=== PATIENT | female | born 1950 | race Hispanic/Latino ===

== ENCOUNTER 2018-12-31 06:56 | Inpatient (IN) | payer MEDICARE, OTHER ==
[2018-12-30 11:56] LABS: BASOPHILS # (AUTO) 0.1 (0.0-0.1); BASOPHILS % 0.7 % (0.0-1.0); EOSINOPHILS # (AUTO) 0.2 (0.0-0.4); EOSINOPHILS % 2.8 % (0.0-6.0); HEMATOCRIT 36.7 % (34.2-44.1); HEMOGLOBIN 11.8 g/dL (12.0-16.0); LYMPHOCYTES # (AUTO) 2.1 (1.0-3.2); LYMPHOCYTES % 27.9 % (18.0-39.1); MEAN CORPUSCULAR HEMOGLOBIN 29.3 pg (28-32); MEAN CORPUSCULAR HGB CONC 32.2 g/dL (31-35); MEAN CORPUSCULAR VOLUME 91.1 fL (81-99); MONOCYTES # (AUTO) 0.9 (0.2-0.8); MONOCYTES % 11.7 % (4.4-11.3); NEUTROPHILS # (AUTO) 4.2 (2.1-6.9); NEUTROPHILS % 56.6 % (38.7-80.0); PLATELET COUNT 303 x10e3/uL (140-360); RED BLOOD COUNT 4.03 x10e6/uL (3.6-5.1); RED CELL DISTRIBUTION WIDTH 13.6 % (11.7-14.4)
--- NOTE | 2018-12-30 12:16 | Diagnostic Imaging Report ---
EXAMINATION: CHEST 2 VIEWS INDICATION: Preoperative COMPARISON: None FINDINGS: TUBES and LINES: None. LUNGS: The lung volumes are normal. No focal consolidation or pulmonary edema. PLEURA: No pleural effusion or pneumothorax. HEART AND MEDIASTINUM: The cardiomediastinal silhouette is normal in size and contour. BONES AND SOFT TISSUES: No acute fracture or dislocation. Degenerative changes of the visualized spine. UPPER ABDOMEN: No free air under the diaphragm. IMPRESSION: No focal pneumonia or pulmonary edema. Signed by: Evelio Bocanegra MD on 12/30/2018 12:13 PM
[2018-12-30 12:26] LABS: ANION GAP 9.8 mmol/L (8-16); BLOOD UREA NITROGEN 12 mg/dL (7-26); BUN/CREATININE RATIO 15 (6-25); CALCIUM 9.7 mg/dL (8.4-10.2); CARBON DIOXIDE 31 mmol/L (22-29); CHLORIDE 97 mmol/L (98-107); CREATININE, SERUM 0.78 mg/dL (0.57-1.11); EST GLOMERULAR FILTRATION RATE > 60 ML/MIN (60-); GLUCOSE 87 mg/dL (74-118); POTASSIUM 3.8 mmol/L (3.5-5.1); SODIUM 134 mmol/L (136-145)
[~2018-12-31] VITALS: Ht 147.3 cm; Wt 69.9 kg
[~2018-12-31 06:56] MED LIST: LOSARTAN-HCTZ1 EAC2 PO; OXYBUTYNIN CHLOR5 MG PO
--- OUTSIDE RECORDS SUMMARY | 2018-12-31 07:07 | XMS REPORT | Continuity of Care Document ---
Author Author [facility] Organization [facility] Address Unknown Phone Unavailable Care Team Providers Care Staff Pharmacist Hospital Name Role Phone [employer] Unavailable Unavailable Problems Problem Status Onset Date Classification Date Reported Comments Source Hyperlipidemia, unspecified hyperlipidemia type Active Problem 11/06/2018 [facility] Hypertension, unspecified type Active Problem 11/06/2018 [facility] DDD , lumbar Active Problem 11/06/2018 [facility] Overactive bladder Active Problem 11/06/2018 [facility] Sinus headache Active Diagnosis 09/16/2018 [facility] Nonintractable headache, unspecified chronicity pattern, unspecified headache type Active Diagnosis 10/25/2018 [facility] Lumbar radiculopathy Active Diagnosis 04/23/2018 [facility] Medications Medication Details Route Status Patient Instructions Ordering Provider Order Date Source Oxybutynin Chloride ER 1 tablet Orally Active 10 mg Orally as needed (prn) [facility] 11/28/2018 [facility] Levaquin 1 tablet Orally Active 500 mg Orally Once a day [facility] 09/08/2018 [facility] Hydrochlorothiazide 1 tablet in the morning, and 0.5 tablet as needed Orally Active 12.5 MG Orally Once a day prn [facility] 07/22/2018 [facility] Losartan Potassium 1 tablet in the am and 2 tablets in the pm Orally Active 50 mg Orally as directed [facility] 07/22/2018 [facility] Hydrochlorothiazide 1 tablet in the morning, and 0.5 tablet as needed Orally Active 12.5 MG Orally Once a day prn [facility] 07/22/2018 [facility] Oxybutynin Chloride 1 tablet Orally Active 5 MG Orally Twice a day [facility] 06/23/2018 [facility] Losartan Potassium-HCTZ 1 tablet Orally Active 100-12.5 MG Orally Once a day [facility] 02/26/2018 [facility] Medrol (Andrei) as directed Orally Active 4 mg Orally as directed [facility]win [facility] 02/26/2018 [facility] Gabapentin 3 capsule in am 3caps in PM Orally Active 100 mg Orally daily [facility] IBU 1 tablet with food or milk as needed Orally Active 600 MG Orally Three times a day [facility] Glucosamine Chond MSM Formula not defined Orally Active - Orally [facility] Aspir-81 1 tablet Orally Active 81 MG Orally Once a day [facility] Calcium & Magnesium Carbonates not defined Orally Active 311- 232 MG Orally [facility] Oxybutynin Chloride 1 tablet Orally Active 5 MG Orally Twice a day [facility] Valsartan-Hydrochlorothiazide 1 tablet Orally Active 160-12.5 MG Orally Once a day [facility] Gabapentin 3 capsule in am 3caps in PM Orally Active 100 mg Orally daily [facility] Allergies, Adverse Reactions, Alerts Substance Category Reaction Severity Reaction type Status Date Reported Comments Source N.K.D.A. Adverse Reaction Info Not Available Adverse Reaction Active 10/22/2018 [facility] Immunizations No Data Provided for This Section Results No Data Provided for This Section Pathology Reports No Data Provided for This Section Diagnostic Reports No Data Provided for This Section Consultation Notes No Data Provided for This Section Discharge Summaries No Data Provided for This Section History and Physicals No Data Provided for This Section Vital Signs Vital Sign Value Date Comments Source Weight 157 10/22/2018 [facility] Height 58.25 10/22/2018 [facility] Heart Rate 72 10/22/2018 [facility] Diastolic (mm Hg) 60 10/22/2018 [facility] Systolic (mm Hg) 112 10/22/2018 [facility] Weight 157 09/08/2018 [facility] Height 58.25 09/08/2018 [facility] Heart Rate 79 09/08/2018 [facility] Diastolic (mm Hg) 68 09/08/2018 [facility] Systolic (mm Hg) 120 09/08/2018 [facility] Weight 158 07/22/2018 [facility] Height 58.25 07/22/2018 [facility] Heart Rate 73 07/22/2018 [facility] Diastolic (mm Hg) 64 07/22/2018 [facility] Systolic (mm Hg) 110 07/22/2018 [facility] Weight 159 04/15/2018 [facility] Height 58.25 04/15/2018 [facility] Temperature Oral (F) 98.1 F 04/15/2018 [facility] Heart Rate 88 04/15/2018 [facility] Diastolic (mm Hg) 76 04/15/2018 [facility] Systolic (mm Hg) 132 04/15/2018 [facility] Weight 157 03/12/2018 [facility] Height 58.25 03/12/2018 [facility] Heart Rate 74 03/12/2018 [facility] Diastolic (mm Hg) 64 03/12/2018 [facility] Systolic (mm Hg) 112 03/12/2018 [facility] Weight 161.0 02/26/2018 [facility] Height 58.25 02/26/2018 [facility] Heart Rate 64 02/26/2018 [facility] Diastolic (mm Hg) 74 02/26/2018 [facility] Systolic (mm Hg) 126 02/26/2018 [facility] Encounters No Data Provided for This Section Procedures No Data Provided for This Section Assessment and Plan No Data Provided for This Section Plan of Care No Data Provided for This Section Social History No Data Provided for This Section Family History No Data Provided for This Section Advance Directives No Data Provided for This Section Functional Status No Data Provided for This Section
--- OUTSIDE RECORDS SUMMARY | 2018-12-31 07:08 | XMS REPORT ---
Author Author Demetria Zaragoza Organization [employer] Address Unknown Phone Unavailable Care Team Providers Care Dray Truck Driver Name Role Phone Demetria Zaragoza CP Unavailable Allergies No Known Allergies Problems Problem Type Condition Code Onset Dates Condition Status Problem Hyperlipidemia, unspecified hyperlipidemia type E78.5 Active Problem Hypertension, unspecified type I10 Active Problem DDD (degenerative disc disease), lumbar M51.36 Active Assessment Sinus headache R51 Active Problem Overactive bladder N32.81 Active Medications Medication Code System Code Instructions Start Date End Date Status Dosage Levaquin [facility] 27718156173 500 mg Orally Once a day September 08, 2018 September 28, 2018 Active 1 tablet Hydrochlorothiazide [facility] [address]-27 12.5 MG Orally Once a day prn Jul 22, 2018 Active 1 tablet in the morning, and 0.5 tablet as needed Gabapentin ND 35605460657 100 mg Orally daily Active 3 capsule in am 3caps in PM Losartan Potassium ND 42405221872 50 mg Orally as directed Jul 22, 2018 Active 1 tablet in the am and 2 tablets in the pm Glucosamine Chond MSM Formula ND 15686644845 - Orally Active not defined Calcium & Magnesium Carbonates NDC 0 311-232 MG Orally Active not defined Aspir-81 ND 38622947184 81 MG Orally Once a day Active 1 tablet IBU ND 63536987661 600 MG Orally Three times a day Active 1 tablet with food or milk as needed Results No Known Results Summary Purpose [employer] Submission
--- OUTSIDE RECORDS SUMMARY | 2018-12-31 07:08 | XMS REPORT ---
Author Author Demetria Zaragoza Organization [employer] Address Unknown Phone Unavailable Care Team Providers Care Meter Reader Name Role Phone Demetria Zaragoza CP Unavailable Allergies, Adverse Reactions, Alerts Substance Reaction Event Type N.K.D.A. Info Not Available Non Drug Allergy Problems Problem Type Condition Code Onset Dates Condition Status Problem Hyperlipidemia, unspecified hyperlipidemia type E78.5 Active Problem Hypertension, unspecified type I10 Active Problem DDD (degenerative disc disease), lumbar M51.36 Active Assessment Sinus headache R51 Active Assessment Hypertension, unspecified type I10 Active Problem Overactive bladder N32.81 Active Medications Medication Code System Code Instructions Start Date End Date Status Dosage Gabapentin [facility] 19943529923 100 mg Orally daily Active 3 capsule in am 3caps in PM IBU [facility] 07573596578 600 MG Orally Three times a day Active 1 tablet with food or milk as needed Glucosamine Chond MSM Formula ND 12415040423 - Orally Active not defined Levaquin ND 99381740355 500 mg Orally Once a day September 08, 2018 September 28, 2018 Active 1 tablet Hydrochlorothiazide [facility] [address]-02 12.5 MG Orally Once a day prn Jul 22, 2018 Active 1 tablet in the morning, and 0.5 tablet as needed Losartan Potassium ND 14925641029 50 mg Orally as directed Jul 22, 2018 Active 1 tablet in the am and 2 tablets in the pm Aspir-81 [facility] 12000039699 81 MG Orally Once a day Active 1 tablet Calcium & Magnesium Carbonates ND 0 311-232 MG Orally Active not defined Vital Signs Date/Time: September 08, 2018 BMI 32.53 Index Weight 157 lbs Height 58.25 in Cardiac Monitoring Heart Rate 79 /min Blood Pressure Diastolic 68 mm Hg Blood Pressure Systolic 120 mm Hg Results No Known Results Summary Purpose [employer] Submission
--- OUTSIDE RECORDS SUMMARY | 2018-12-31 07:08 | XMS REPORT ---
Author Author Demetria Zaragoza Organization [employer] Address Unknown Phone Unavailable Care Team Providers Care Pediatric Dentist Name Role Phone Demetria Zaragoza CP Unavailable Allergies No Known Allergies Problems Problem Type Condition Code Onset Dates Condition Status Problem Hyperlipidemia, unspecified hyperlipidemia type E78.5 Active Problem Hypertension, unspecified type I10 Active Problem DDD (degenerative disc disease), lumbar M51.36 Active Problem Overactive bladder N32.81 Active Medications No Known Medications Results No Known Results Summary Purpose [employer] Submission
--- OUTSIDE RECORDS SUMMARY | 2018-12-31 07:08 | XMS REPORT ---
Author Author Demetria Zaragoza Organization [employer] Address Unknown Phone Unavailable Care Team Providers Care French Teacher Name Role Phone Demetria Zaragoza CP Unavailable Allergies, Adverse Reactions, Alerts Substance Reaction Event Type N.K.D.A. Info Not Available Non Drug Allergy Problems Problem Type Condition Code Onset Dates Condition Status Problem Hypertension, unspecified type I10 Active Assessment Lumbar radiculopathy M54.16 Active Problem Overactive bladder N32.81 Active Assessment Hypertension, unspecified type I10 Active Medications Medication Code System Code Instructions Start Date End Date Status Dosage Aspir-81 ND 99507920389 81 MG Orally Once a day Active 1 tablet Losartan Potassium-HCTZ ND 51827330820 100-12.5 MG Orally Once a day Feb 26, 2018 Active 1 tablet Calcium & Magnesium Carbonates NDC 0 311-232 MG Orally Active not defined Oxybutynin Chloride ER ND 66842982855 10 mg Orally Once a day November 28, 2018 Active 1 tablet Glucosamine Chond MSM Formula ND 14143661452 - Orally Active not defined Medrol (Andrei) NDC 0 4 mg Orally as directed Feb 26, 2018 Mar 04, 2018 Active as directed Valsartan-Hydrochlorothiazide ND 44692051839 160-12.5 MG Orally Once a day Inactive 1 tablet Vital Signs Date/Time: Feb 26, 2018 BMI 33.36 Index Weight 161.0 lbs Height 58.25 in Cardiac Monitoring Heart Rate 64 /min Blood Pressure Diastolic 74 mm Hg Blood Pressure Systolic 126 mm Hg Results No Known Results Summary Purpose [employer] Submission
--- OUTSIDE RECORDS SUMMARY | 2018-12-31 07:08 | XMS REPORT ---
Author Author Demetria Zaragoza Organization [employer] Address Unknown Phone Unavailable Care Team Providers Care Ct Scan Technician Name Role Phone Demetria Zaragoza CP Unavailable [...]
--- OUTSIDE RECORDS SUMMARY | 2018-12-31 07:08 | XMS REPORT ---
Author Author Demetria Zaragoza Organization [employer] Address Unknown Phone Unavailable Care Team Providers Care Director Of Cardiology Name Role Phone Demetria Zaragoza CP Unavailable Allergies, Adverse Reactions, Alerts Substance Reaction Event Type N.K.D.A. Info Not Available Non Drug Allergy Problems Problem Type Condition Code Onset Dates Condition Status Problem Hyperlipidemia, unspecified hyperlipidemia type E78.5 Active Problem Hypertension, unspecified type I10 Active Problem DDD (degenerative disc disease), lumbar M51.36 Active Assessment DDD (degenerative disc disease), lumbar M51.36 Active Assessment Lumbar radiculopathy M54.16 Active Problem Overactive bladder N32.81 Active Medications Medication Code System Code Instructions Start Date End Date Status Dosage Glucosamine Chond MSM Formula [facility] 36342286894 - Orally Active not defined Oxybutynin Chloride ER [facility] 80217056221 10 mg Orally as needed (prn) November 28, 2018 Active 1 tablet Calcium & Magnesium Carbonates ND 0 311-232 MG Orally Active not defined Losartan Potassium-HCTZ [facility] 10726454956 100-12.5 MG Orally Once a day Feb 26, 2018 Active 1 tablet Aspir-81 [facility] 83949755811 81 MG Orally Once a day Active 1 tablet Vital Signs Date/Time: Apr 15, 2018 BMI 32.94 Index Weight 159 lbs Height 58.25 in Temperature 98.1 F Cardiac Monitoring Heart Rate 88 /min Blood Pressure Diastolic 76 mm Hg Blood Pressure Systolic 132 mm Hg Results No Known Results Summary Purpose [employer] Submission
--- OUTSIDE RECORDS SUMMARY | 2018-12-31 07:08 | XMS REPORT ---
Author Author Demetria Zaragoza Organization [employer] Address Unknown Phone Unavailable Care Team Providers Care School Secretary Name Role Phone Demetria Zaragoza CP Unavailable [...]
--- OUTSIDE RECORDS SUMMARY | 2018-12-31 07:08 | XMS REPORT ---
Author Author Demetria Zaragoza [facility] [employer] Address Unknown Phone Unavailable Care Team Providers Care Military Communications Specialist Name Role Phone Kerwin Eric Demetria CP Unavailable Allergies, Adverse Reactions, Alerts Substance Reaction Event Type N.K.D.A. Info Not Available Non Drug Allergy Problems Problem Type Condition Code Onset Dates Condition Status Problem Hyperlipidemia, unspecified hyperlipidemia type E78.5 Active Problem Hypertension, unspecified type I10 Active Problem DDD (degenerative disc disease), lumbar M51.36 Active Assessment Nonintractable headache, unspecified chronicity pattern, unspecified headache type R51 Active Problem Overactive bladder N32.81 Active Medications Medication Code System Code Instructions Start Date End Date Status Dosage Glucosamine Chond MSM Formula [facility] 01450157879 - Orally Active not defined Gabapentin [facility] 02066405280 100 mg Orally daily Active 3 capsule in am 3caps in PM Losartan Potassium ND 00248676151 50 mg Orally as directed Jul 22, 2018 Active 1 tablet in the am and 2 tablets in the pm Oxybutynin Chloride ND 15709027072 5 MG Orally Twice a day Active 1 tablet Aspir-81 [facility] 34789504673 81 MG Orally Once a day Active 1 tablet Calcium & Magnesium Carbonates ND 0 311-232 MG Orally Active not defined IBU [facility] 15363792946 600 MG Orally Three times a day Active 1 tablet with food or milk as needed Hydrochlorothiazide ND 17281849710 12.5 MG Orally Once a day prn Jul 22, 2018 Active 1 tablet in the morning, and 0.5 tablet as needed Vital Signs Date/Time: October 22, 2018 BMI 32.53 Index Weight 157 lbs Height 58.25 in Cardiac Monitoring Heart Rate 72 /min Blood Pressure Diastolic 60 mm Hg Blood Pressure Systolic 112 mm Hg Results Name Result Date Reference Range Unit Abnormality Flag Sedimentation Rate-Westergren ----Sedimentation Rate-Westergren 8 20181023 0-40 mm/hr Hemoglobin A1c ----Hemoglobin A1c 5.6 20181023 4.8-5.6 % Comp. Metabolic Panel (14) ----A/G Ratio 1.7 20181023 1.2-2.2 ----Globulin, Total 2.4 20181023 1.5-4.5 g/dL ----Alkaline Phosphatase 68 20181023 39-117 IU/L ----Bilirubin, Total 0.4 20181023 0.0-1.2 mg/dL ----Chloride 102 20181023 96-106 mmol/L ----ALT (SGPT) 12 20181023 0-32 IU/L ----Potassium 4.2 20181023 3.5-5.2 mmol/L ----AST (SGOT) 19 20181023 0-40 IU/L ----Sodium 141 20181023 134-144 mmol/L ----BUN/Creatinine Ratio 24 20181023 ----eGFR If Africn Am 100 20181023 >59 mL/min/1.73 ----Calcium 9.6 20181023 8.7-10.3 mg/dL ----Carbon Dioxide, Total 26 20181023 20-29 mmol/L ----Albumin 4.1 20181023 3.5-4.8 g/dL ----Protein, Total 6.5 20181023 6.0-8.5 g/dL ----Glucose 96 20181023 65-99 mg/dL ----BUN 17 20181023 8-27 mg/dL ----Creatinine 0.71 20181023 0.57-1.00 mg/dL ----eGFR If NonAfricn Am 87 20181023 >59 mL/min/1.73 TSH ----TSH 2.040 20181023 0.450-4.500 uIU/mL CBC With Differential/Platelet ----RDW 14.5 20181023 12.3-15.4 % ----MCHC 33.4 20181023 31.5-35.7 g/dL ----MCH 29.2 20181023 26.6-33.0 pg ----MCV 88 20181023 79-97 fL ----Hematocrit 35.6 43130138 34.0-46.6 % ----Hemoglobin 11.9 20181023 11.1-15.9 g/dL ----Immature Granulocytes 0 20181023 Not Estab. % ----RBC 4.07 20181023 3.77-5.28 x10E6/uL ----WBC 6.4 20181023 3.4-10.8 x10E3/uL ----Immature Grans (Abs) 0.0 20181023 0.0-0.1 x10E3/uL ----Eos (Absolute) 0.2 20181023 0.0-0.4 x10E3/uL ----Basos 1 20181023 Not Estab. % ----Baso (Absolute) 0.0 20181023 0.0-0.2 x10E3/uL ----Neutrophils (Absolute) 3.9 20181023 1.4-7.0 x10E3/uL ----Lymphs (Absolute) 1.8 20181023 0.7-3.1 x10E3/uL ----Monocytes(Absolute) 0.4 20181023 0.1-0.9 x10E3/uL ----Neutrophils 60 20181023 Not Estab. % ----Lymphs 29 20181023 Not Estab. % ----Monocytes 7 [id number] Not Estab. % ----Eos 3 20181023 Not Estab. % ----Platelets 330 20181023 150-379 x10E3/uL Summary Purpose [employer]ClinicalWorks Submission
--- OUTSIDE RECORDS SUMMARY | 2018-12-31 07:08 | XMS REPORT ---
Author Author Demetria Zaragoza Organization [employer] Address Unknown Phone Unavailable Care Team Providers Care Emergency Specialist Name Role Phone Demetria Zaragoza CP Unavailable Allergies, Adverse Reactions, Alerts Substance Reaction Event Type N.K.D.A. Info Not Available Non Drug Allergy Problems Problem Type Condition Code Onset Dates Condition Status Problem Hypertension, unspecified type I10 Active Problem Overactive bladder N32.81 Active Problem Hyperlipidemia, unspecified hyperlipidemia type E78.5 Active Assessment Lumbar radiculopathy M54.16 Active Assessment Overactive bladder N32.81 Active Assessment Hypertension, unspecified type I10 Active Assessment Hyperlipidemia, unspecified hyperlipidemia type E78.5 Active Medications Medication Code System Code Instructions Start Date End Date Status Dosage Losartan Potassium-HCTZ [facility] 88166332175 100-12.5 MG Orally Once a day Feb 26, 2018 Active 1 tablet Oxybutynin Chloride ER ND 59165653142 10 mg Orally as needed (prn) November 28, 2018 Active 1 tablet Calcium & Magnesium Carbonates ND 0 311-232 MG Orally Active not defined Aspir-81 [facility] 37013800393 81 MG Orally Once a day Active 1 tablet Glucosamine Chond MSM Formula ND 68856728673 - Orally Active not defined Vital Signs Date/Time: Mar 12, 2018 BMI 32.53 Index Weight 157 lbs Height 58.25 in Cardiac Monitoring Heart Rate 74 /min Blood Pressure Diastolic 64 mm Hg Blood Pressure Systolic 112 mm Hg Results No Known Results Summary Purpose [employer]Works Submission
--- OUTSIDE RECORDS SUMMARY | 2018-12-31 07:09 | XMS REPORT ---
Author Author [facility] Address Unknown Phone Unavailable Care Team Providers Care [facility] [employer] [facility] Former Name Role Phone GLADYS PETERS Unavailable Unavailable Problems This patient has no known problems. Allergies, Adverse Reactions, Alerts This patient has no known allergies or adverse reactions. Medications This patient has no known medications. Encounters Start Date/Time End Date/Time Encounter Type Admission Type Attending Clinicians Care Facility Care Department Encounter ID 2018-10-28 14:32:33 [place] [facility] [place] [id number] Results Test Description Test Time Test Comments Text Results Atomic Results Result Comments CHEST 2 VIEWS 2018-12-30 12:12:00 [place] [id number] Patient Name: SUZY TORRE MR #: [id number] : 1950 Age/Sex: 68/F Req #: [id number] Adm Physician: Ordered by: GLADYS PETERS MD Report #: [id number] Location: OR Room/Bed: Procedure: [id number] DX/CHEST 2 VIEWS Exam Date: Exam Time: REPORT STATUS: Signed EXAMINATION: CHEST 2 VIEWS INDICATION: Preoperative COMPARISON: None FINDINGS: TUBES and LINES: None. LUNGS: The lung volumes are normal. No focal consolidation or pulmonary edema. PLEURA: No pleural effusion or pneumothorax. HEART AND MEDIASTINUM: The cardiomediastinal silhouette is normal in size and contour. BONES AND SOFT TISSUES: No acute fracture or dislocation. Degenerative changes of the visualized spine. UPPER ABDOMEN: No free air under the diaphragm. IMPRESSION: No focal pneumonia or pulmonary edema. Signed by: Rajendra Bocanegra MD on 12/30/2018 12:13 PM Dictated By: RAJENRDA BOCANEGRA MD 1213 Transcribed By: JANET on 12/30/18 1213 COPY TO: GLADYS PETERS MD
--- OUTSIDE RECORDS SUMMARY | 2018-12-31 07:09 | XMS REPORT ---
Author Author Demetria Zaragoza [facility] eClinicalWorks Address Unknown Phone Unavailable Care Team Providers Care Instrument Lens Generator Name Role Phone Demetria Zaragoza CP Unavailable Allergies, Adverse Reactions, Alerts Substance Reaction Event Type N.K.D.A. Info Not Available Non Drug Allergy Problems Problem Type Condition Code Onset Dates Condition Status Problem Hyperlipidemia, unspecified hyperlipidemia type E78.5 Active Problem Hypertension, unspecified type I10 Active Problem DDD (degenerative disc disease), lumbar M51.36 Active Assessment Hypertension, unspecified type I10 Active Problem Overactive bladder N32.81 Active Medications Medication Code System Code Instructions Start Date End Date Status Dosage Oxybutynin Chloride [facility] 99199777685 5 MG Orally Twice a day Jun 23, 2018 Jul 23, 2018 Active 1 tablet Gabapentin [facility] [address]-21 100 mg Orally daily Active 3 capsule in am 3caps in PM Oxybutynin Chloride ER ND 70327577501 10 mg Orally as needed (prn) November 28, 2018 Active 1 tablet Losartan Potassium-HCTZ [facility] 19606175635 100-12.5 MG Orally Once a day Feb 26, 2018 Inactive 1 tablet Glucosamine Chond MSM Formula [facility] 43160959759 - Orally Active not defined Aspir-81 [facility] 13316743336 81 MG Orally Once a day Active 1 tablet Hydrochlorothiazide ND 85752320232 12.5 MG Orally Once a day prn Jul 22, 2018 Active 1 tablet in the morning Gabapentin [facility] [address]-56 100 mg Orally Three times a day Active 1 capsule Losartan Potassium ND 32301010046 50 mg Orally as directed Jul 22, 2018 Active 1 tablet in the am and 2 tablets in the pm Calcium & Magnesium Carbonates ND 0 311-232 MG Orally Active not defined IBU [facility] 66915593327 600 MG Orally Three times a day Active 1 tablet with food or milk as needed Vital Signs Date/Time: Jul 22, 2018 BMI 32.74 Index Weight 158 lbs Height 58.25 in Cardiac Monitoring Heart Rate 73 /min Blood Pressure Diastolic 64 mm Hg Blood Pressure Systolic 110 mm Hg Results No Known Results Summary Purpose eClinicalWorks Submission
--- OUTSIDE RECORDS SUMMARY | 2018-12-31 07:09 | XMS REPORT ---
Author Author Demetria Zaragoza Organization eClinicalWorks Address Unknown Phone Unavailable Care Team Providers Care Nursing Agency Manager Name Role Phone Demetria Zaragoza CP Unavailable Allergies No Known Allergies Problems Problem Type Condition Code Onset Dates Condition Status Problem Hyperlipidemia, unspecified hyperlipidemia type E78.5 Active Problem Hypertension, unspecified type I10 Active Problem DDD (degenerative disc disease), lumbar M51.36 Active Problem Overactive bladder N32.81 Active Medications Medication Code System Code Instructions Start Date End Date Status Dosage Oxybutynin Chloride [facility] 02592005653 5 MG Orally Twice a day Jun 23, 2018 Jul 23, 2018 Active 1 tablet Results No Known Results Summary Purpose eClinicalWorks Submission
[2018-12-31] MEDS ORDERED: CLINDAMYCIN 600MG / 50ML 50 ML IV ONE (07:15)
[2018-12-31] MEDS ORDERED: CEFTRIAXONE SOD 1 GM/NS 50 ML 50 ML IV ONE (07:15)
[2018-12-31] MEDS ORDERED: GENTAMICIN 80MG/NS 100 ML 200 ML IV ONE (07:16)
[2018-12-31] MEDS ORDERED: METHYLENE BLUE 1% INJ 10 ML VIAL INJ ONE (10:10)
[2018-12-31] MEDS ORDERED: BUPIVACAINE 0.25%/EPI 30ML SDV INJ ONE (10:11)
[2018-12-31] MEDS ORDERED: IOPAMIDOL 610MG/1ML 300 MG/ML VIAL IV ONE (10:11)
[2018-12-31] MEDS ORDERED: BACITRACIN 50,000 UNIT VIAL ONE (10:11)
[2018-12-31] MEDS ORDERED: MUPIROCIN 2% OINT 22 GM TUBE ONE (10:11)
[2018-12-31] MEDS ORDERED: DIPHENHYDRAMINE HCL INJ 50 MG/ML VIAL IM PRN (12:15)
[2018-12-31] MEDS ORDERED: NALOXONE HCL INJ 0.4 MG/ML AMP IV PRN (12:15)
[2018-12-31] MEDS ORDERED: MORPHINE SULFATE 1 MG/ML 30ML PCA IV PRN (12:15)
[2018-12-31] MEDS ORDERED: ONDANSETRON HCL INJ 2MG/ML 2ML 2 MG/ML VIAL IV PRN (12:15)
[2018-12-31] MEDS ORDERED: ACETAMINOPHEN 1000 MG/100 ML IV PRN (12:15)
[2018-12-31] MEDS ORDERED: MORPHINE SULFATE INJ 4 MG/ML INJ 1ML ONE (12:38)
--- OUTSIDE RECORDS SUMMARY | 2018-12-31 13:09 | XMS REPORT | Continuity of Care Document ---
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 Phone [employer] Unavailable Unavailable Problems Problem Status Onset Date Classification Date Reported Comments Source Hyperlipidemia, unspecified hyperlipidemia type Active Problem 11/06/2018 [facility] Hypertension, unspecified type Active Problem 11/06/2018 [facility] DDD , lumbar Active Problem 11/06/2018 [facility] Overactive bladder Active Problem 11/06/2018 [facility] Sinus headache Active Diagnosis 09/16/2018 [facility] Nonintractable headache, unspecified chronicity pattern, unspecified headache type Active Diagnosis 10/25/2018 [facility] Lumbar radiculopathy Active Diagnosis 04/23/2018 [facility] Medications Medication Details Route Status Patient Instructions Ordering Provider Order Date Source Oxybutynin Chloride ER 1 tablet Orally Active 10 mg Orally as needed (prn) [facility] 11/28/2018 [facility] Levaquin 1 tablet Orally Active 500 mg Orally Once a day [facility] 09/08/2018 [facility] Hydrochlorothiazide 1 tablet in the morning, and 0.5 tablet as needed Orally Active 12.5 MG Orally Once a day prn [facility] 07/22/2018 [facility] Losartan Potassium 1 tablet in the am and 2 tablets in the pm Orally Active 50 mg Orally as directed [facility] 07/22/2018 [facility] Hydrochlorothiazide 1 tablet in the morning, and 0.5 tablet as needed Orally Active 12.5 MG Orally Once a day prn [facility] 07/22/2018 [facility] Oxybutynin Chloride 1 tablet Orally Active 5 MG Orally Twice a day [facility] 06/23/2018 [facility] Losartan Potassium-HCTZ 1 tablet Orally Active 100-12.5 MG Orally Once a day [facility] 02/26/2018 [facility] Medrol (Andrei) as directed Orally Active 4 mg Orally as directed [facility] 02/26/2018 [facility] Gabapentin 3 capsule in am 3caps in PM Orally Active 100 mg Orally daily [facility] IBU 1 tablet with food or milk as needed Orally Active 600 MG Orally Three times a day [facility] Glucosamine Chond MSM Formula not defined Orally Active - Orally [facility] Aspir-81 1 tablet Orally Active 81 MG Orally Once a day [facility] Calcium & Magnesium Carbonates not defined Orally Active 311- 232 MG Orally [facility] Oxybutynin Chloride 1 tablet Orally Active 5 MG Orally Twice a day [facility] Valsartan-Hydrochlorothiazide 1 tablet Orally Active 160-12.5 MG Orally Once a day [facility] Gabapentin 3 capsule in am 3caps in PM Orally Active 100 mg Orally daily [facility] Allergies, Adverse Reactions, Alerts Substance Category Reaction Severity Reaction type Status Date Reported Comments Source N.K.D.A. Adverse Reaction Info Not Available Adverse Reaction Active 10/22/2018 [facility] Immunizations No [...] Value Date Comments Source Weight 157 10/22/2018 [facility] Height 58.25 10/22/2018 [facility] Heart Rate 72 10/22/2018 [facility] Diastolic (mm Hg) 60 10/22/2018 [facility] Systolic (mm Hg) 112 10/22/2018 [facility] Weight 157 09/08/2018 [facility] Height 58.25 09/08/2018 [facility] Heart Rate 79 09/08/2018 [facility] Diastolic (mm Hg) 68 09/08/2018 [facility] Systolic (mm [...]
[2018-12-31 13:45] VITALS: BP 148/68
--- NOTE | 2018-12-31 13:45 | NUR ---
RECEIVED TO RM AAOX3, NO DISTRESS NOTED, IVF INFUSING TO R FA 20G NO SS OF INFILTRATION NOTED, CVT TECH ON DEMAND INSTRUCTED ON USAGE VOICED UNDERSTANDING, MANZANARES TO BSD WITH YELLOW URINE NOTED, VAG PACKING IN PLACE, DENIES PAIN AT THIS TIME, CALL LIGHT IN REACH WILL CONTINUE TO MONITOR
[2018-12-31 14:29] VITALS: BP 148/68
[2018-12-31] MEDS: D5.45%NS/KCL 20MEQ 1,000 ML IV SCH ×3 (14:50→23:25)
[2018-12-31] MEDS: PIPER-TAZ 3.375 GM 50 ML IV SCH ×2 (14:50→22:28)
--- NOTE | 2018-12-31 15:00 | NUR ---
GOLF BALL SIZE BLOOD NOTED ON ESTRELLA PAD, PT CLEANED WITH FRESH PADS APPLIED
--- NOTE | 2018-12-31 16:30 | NUR ---
TENNIS BALL SIZE BLOOD NOTED ON ESTRELLA PAD, PT CLEANSED AND PAD CHANGED
[2018-12-31 16:48] VITALS: BP 126/56
[2018-12-31] MEDS: DOCUSATE SODIUM 100 MG CAP PO SCH (17:27)
[2018-12-31] MEDS ORDERED: ROCURONIUM BROMIDE 10 MG/ML 5ML VIAL ONE (17:51)
[2018-12-31] MEDS ORDERED: SEVOFLURANE INHAL SOLN 250 ML PEN BTL ONE (17:51)
[2018-12-31] MEDS ORDERED: DEXAMETHASONE SOD PHOS INJ 4 MG/ML VIAL ONE (17:51)
[2018-12-31] MEDS ORDERED: PROPOFOL IV EMULSION 10 MG/ML 20 ML VIAL ONE (17:51)
[2018-12-31] MEDS ORDERED: LIDOCAINE HCL 2% LOCAL INJ 5 ML SDV VIAL INJ ONE (17:51)
[2018-12-31] MEDS ORDERED: ONDANSETRON HCL INJ 2MG/ML 2ML 2 MG/ML VIAL ONE (17:51)
[2018-12-31] MEDS ORDERED: MIDAZOLAM HCL 2 MG/2 ML VIAL ONE (18:38)
[2018-12-31] MEDS ORDERED: FENTANYL CITRATE/PF 100MCG/2 ML INJ ONE (18:38)
--- NOTE | 2018-12-31 19:20 | NUR ---
WALKING ROUNDS PERFORMED, RECEIVED PT LAYING SEMI FOWLERS IN BED, AAOX3, RR EVEN AND NON-LABORED, ON ROOM AIR. NO S/SX OF DISTRESS NOTED. PT HAS DELINQUENT TAX COLLECTOR MORPHINE FOR PAIN MANAGEMENT. DELINQUENT TAX COLLECTOR BUTTON WITHIN REACH. LEFT PT LAYING SEMI FOWLERS IN BED, BED IN LOW LOCKED POSITION, SIDE RAILS UPX2, CALL LIGHT AND PHONE WITHIN REACH. FAMILY AT BEDSIDE.
[2018-12-31 20:00] VITALS: BP 165/79
[2018-12-31] MEDS ORDERED: LOSARTAN POTASSIUM 100 MG TAB PO ONE (20:15)
[2018-12-31] MEDS ORDERED: HYDROCHLOROTHIAZIDE 25 MG TAB PO ONE (20:15)
[2018-12-31 21:02] VITALS: BP 165/79
[2019-01-01] VITALS: BP 133/76
--- NOTE | 2019-01-01 01:52 | History and Physical ---
CHIEF COMPLAINT: Status post cystoscopy with retrogrades and cystocele repair. HISTORY OF PRESENT ILLNESS: This is a 68-year-old female, who has history of urinary incontinence, came in for an elective procedure that was performed by Dr. Coe, Urology, in which she underwent a cystoscopy with retrogrades and cystocele repair. The patient did well postoperatively and was admitted for overnight stay for pain control and monitoring her very closely. The patient denies any pain. During my evaluation, she is currently on a POOLROOM TABLE ATTENDANT morphine pump. She also reports having history of urinary incontinence . The patient denies any chest pain, palpitation, nausea, or vomiting. The patient seen and evaluated at bedside on the medical floor, currently doing well with no other issues at this time. REVIEW OF SYSTEMS: Pertinent positive: Urinary incontinence. Pertinent negative: Denies any chest pain, palpitation, nausea, vomiting, diarrhea, dysuria, hematuria, frequency, urgency, lightheadedness, dizziness, abdominal pain, headaches, shortness of breath, cough, congestion, fever, or any other complaints. The rest of the 14-point review of systems are reviewed with the patient and are negative. ALLERGIES: NO KNOWN DRUG ALLERGIES. HOME MEDICATIONS: Losartan/hydrochlorothiazide 100/12.5 mg one tab p.o. daily and oxybutynin 5 mg daily. PAST MEDICAL HISTORY: Urinary incontinence and hypertension. PAST SURGICAL HISTORY: Recent cystoscopy with retrogrades with cystocele repair. FAMILY HISTORY: Hypertension and diabetes. SOCIAL HISTORY: No drugs or alcohol. Does not smoke. Good social support. PHYSICAL EXAMINATION: VITAL SIGNS: Temperature is 96.4, pulse 70, respiratory rate is 18, blood pressure , pulse ox 100% on 2 L nasal cannula. GENERAL: Not in acute distress. Alert and oriented x3. Cooperative on examination. HEENT: Head is normocephalic and atraumatic. Eyes; pupils are equal, round, and reactive to light bilaterally. Extraocular movements are intact bilaterally. Throat, no evidence of erythema or exudates in the posterior pharynx. Has poor dentition. NECK: Supple. Good range of motion. PULMONARY: Clear to auscultation bilaterally. No wheezing, no rales, no rhonchi, no crackles appreciated. CARDIOVASCULAR: Positive S1, S2. No murmurs, rubs, or gallops appreciated. ABDOMEN: Soft, nontender, nondistended to palpation. Bowel sounds present. MUSCULOSKELETAL: Strength is 5/5 throughout. No evidence of any muscles deficits on examination. No weakness appreciated. NEUROLOGICAL: Cranial nerves II through XII grossly intact. No evidence of any neurological deficits on exam. SKIN: Intact. Warm to touch. Good cap refill. PSYCHIATRIC: Normal affect and mood. EXTREMITIES: No edema. Good range of motion throughout. MICROBIOLOGY: None. IMAGING STUDIES: Chest x-ray was performed shows no focal pneumonia or pulmonary edema. IMPRESSION: 1. Status post cystoscopy with retrograde urethrogram and underlying cystocele repair. 2. Hypertension. 3. Urinary incontinence. PLAN: At this time, continue with postop care. The patient is currently doing well with no issues. She is on a morphine POOLROOM TABLE ATTENDANT pump, which we will try to wean off to oral. Get a.m. labs. Resume same home medications. Continue with losartan/hydrochlorothiazide. Add antinausea medication as well. Regular diet. SCDs for DVT prophylaxis. She has already been given antibiotics intraoperatively. She is currently on Zosyn that was started by Dr. Coe, which we will go ahead and continue. Otherwise, we will continue same plan of care and monitor very closely. MD MAGAN Lewis/SANDIE /[id number]
[2019-01-01 04:00] VITALS: BP 124/71
[2019-01-01] MEDS: PIPER-TAZ 3.375 GM 50 ML IV SCH (06:05)
--- NOTE | 2019-01-01 06:17 | NUR ---
SPOKE WITH MD Bertrand PETERS CONCERNING REMOVAL OF VAGINAL PACKING. WAS INSTRUCTED TO LEAVE VAGINAL PACKING IN AT THIS TIME, MD WILL RE-EVALUATE NEED TO REMOVE PACKING LATER TODAY.
[2019-01-01 06:43] LABS: BASOPHILS % 0.1 % (0.0-1.0); HEMATOCRIT 30.5 % (34.2-44.1); HEMOGLOBIN 10.2 g/dL (12.0-16.0); LYMPHOCYTES # (AUTO) 1.2 (1.0-3.2); MEAN CORPUSCULAR HEMOGLOBIN 29.7 pg (28-32); MEAN CORPUSCULAR HGB CONC 33.4 g/dL (31-35); MEAN CORPUSCULAR VOLUME 88.7 fL (81-99); MONOCYTES # (AUTO) 1.3 (0.2-0.8); MONOCYTES % 7.9 % (4.4-11.3); NEUTROPHILS # (AUTO) 13.9 (2.1-6.9); NEUTROPHILS % 84.5 % (38.7-80.0); PLATELET COUNT 282 x10e3/uL (140-360); RED BLOOD COUNT 3.44 x10e6/uL (3.6-5.1); RED CELL DISTRIBUTION WIDTH 13.3 % (11.7-14.4)
[2019-01-01 07:01] LABS: BLOOD UREA NITROGEN 8 mg/dL (7-26); BUN/CREATININE RATIO 11 (6-25); CALCIUM 9.1 mg/dL (8.4-10.2); CARBON DIOXIDE 24 mmol/L (22-29); CHLORIDE 102 mmol/L (98-107); CREATININE, SERUM 0.74 mg/dL (0.57-1.11); EST GLOMERULAR FILTRATION RATE > 60 ML/MIN (60-); GLUCOSE 152 mg/dL (74-118); SODIUM 134 mmol/L (136-145)
--- NOTE | 2019-01-01 07:11 | NUR ---
BEDSIDE SHIFT REPORT PERFORMED WITH ONCOMING NURSE.
[2019-01-01 07:30] VITALS: BP 132/60
--- NOTE | 2019-01-01 07:30 | NUR ---
REC'D PATIENT AAOX3, MANZANARES IN PLACE AND NOT TO BE REMOVED LABEL ON, ON ROOM AIR, NO S/S OF DISTRESS. VAGINAL PACKING INTACT, X2 INCISIONS TO LOWER ABD. FLUIDS RUNNING AND EDUCATION TRAINER SETTINGS REVIEWED WITH SECOND NURSE. SIDE RAILS UP X2, BED IN LOWEST POSITION, AND CALL SURESH WITHIN REACH.
--- NOTE | 2019-01-01 07:45 | NUR ---
PATIENT TAUGHT PATIENT HOW TO REMOVE MANZANARES PROPERLY.
--- NOTE | 2019-01-01 07:45 | NUR ---
DR. PETERS SAW PATIENT. ORDERED TO REMOVE VAGINAL PACKING, CHANGE BANDAGE OVER X2 INCISIONS ON LOWER ABDOMEN, FOR PATIENT TO LEAVE MANZANARES UNTIL 01/12/2019, AND TO FOLLOW UP WITH HIM IN A MONTH. SIDE RAILS UP X2, BED IN LOWEST POSITION, AND CALL SURESH WITHIN REACH.
[2019-01-01] MEDS ORDERED: ACETAMINOPHEN/CODEINE 300MG - 30MG TAB PO PRN (08:00)
--- NOTE | 2019-01-01 08:30 | NUR ---
DISCONTINUED COUNTY DIRECTOR WELFARE PUMP PER DR. PETERS. PATIENT STATES SHE DOES NOT HAVE ANY PAIN. SECOND NURSE IN ROOM TO REMOVE COUNTY DIRECTOR WELFARE PUMP AND WASTE.
[2019-01-01] MEDS ORDERED: LOSARTAN POTASSIUM 100 MG TAB PO SCH (09:00)
[2019-01-01] MEDS ORDERED: HYDROCHLOROTHIAZIDE 25 MG TAB PO SCH (09:00)
[2019-01-01] MEDS ORDERED: NON-FORMULARY MEDICATION (Losartan/Hydrochlorothiazide (Losartan-Hctz 100-12.5 Mg Tab) 1 T PO SCH (09:00)
[2019-01-01 09:15] VITALS: BP 132/60
[2019-01-01] MEDS: DOCUSATE SODIUM 100 MG CAP PO SCH (09:17)
[2019-01-01] MEDS ORDERED: ACETAMINOPHEN 325 MG TAB PO PRN (12:45)
[2019-01-01] MEDS ORDERED: LEVAQUIN500 MG PO (13:09)
[2019-01-01] MEDS ORDERED: TYLENOL WITH C1 EACH PO (13:09)
[2019-01-01 13:32] VITALS: BP 127/74
--- NOTE | 2019-01-01 15:00 | NUR ---
PATIENT'S IV INFILTRATED. REMOVED IV AND APPLIED A COOL WASHCLOTH OVER SITE. DR. LAINEZ IN ROOM TO SEE PATIENT AND DISCHARGE HER.
--- NOTE | 2019-01-01 15:45 | NUR ---
GAVE AND EXPLAINED DISCHARGE AND PRESCRIPTIONS TO PATIENT AND . PATIENT UNDERSTOOD THAT SHE NEEDS TO FOLLOW UP WITH PCP IN [address] PETERS IN 1 MONTH. PATIENT AND WERE ESCORTED TO THE FRONT OF THE HOSPITAL
--- NOTE | 2019-01-02 00:49 | Discharge Summary ---
FINAL DISCHARGE DIAGNOSES: 1. Status post cystoscopy with retrograde urethrogram and underlying cystocele repair. 2. Hypertension. 3. Urinary incontinence. COTTAGE SUPERVISOR: Urology. PHYSICAL EXAMINATION: VITAL SIGNS: Temperature is 97.2, pulse 80, respiratory rate is 18, blood pressure is 127/74, pulse ox 96% on room air. LABORATORY FINDINGS: Show white count was found to be 16, but the patient received dexamethasone in the OR and she is currently afebrile, doing well with no complaints. Her hemoglobin is 10.2, hematocrit is 30.5, and platelets of 282. Chemistry; sodium 134, potassium is 4, chloride 102, bicarb 24, anion gap of 12, BUN is 8, creatinine is 0.74, glucose 152, calcium is 9.1. MICROBIOLOGY: None. IMAGING STUDIES: Chest x-ray with no focal pneumonia or pulmonary edema. HOSPITAL COURSE: This is a 68-year-old female, who came into having elective procedure that was performed by Urology, Dr. Coe. The patient underwent status post cystoscopy with retrograde urethrogram and also underlying cystocele repair. The patient did well post procedurally, was initially on a morphine VEGETABLE SORTER pump for pain control. She was on IV antibiotics and discharged on oral antibiotics. The patient was found to have an elevated white count, but the patient received dexamethasone 4 mg IV x1 given in the OR. The patient looks well, alert and oriented x4, afebrile, tolerating diet well, and was ready to be discharged. The patient was cleared for discharge by Urology, Dr. Coe. On discharge, the patient was sent home on oral Levaquin and pain control Tylenol No. 3. On the day of discharge, vital signs were stable, labs reviewed and stable. The patient seen and evaluated, examined thoroughly on the day of discharge. No other complaints. The patient verbalized understanding and agrees to plan of care to followup appointment as an outpatient with the primary care physician in 1 week and urologist in 2 weeks' time. Once again, the leukocytosis is likely secondary to stress induced than infectious etiology as the patient looks great, afebrile with no complaints at this time. MEDICATIONS: See med reconciliation form including Levaquin as well as Tylenol No.3. DISPOSITION: To home. CONDITION: Stable. DIET: Heart healthy. In the event of any worsening symptoms, the patient is advised to come back to the ED for further evaluation. Discharge summary took greater than 35 minutes. MD MAGAN Lewis/SANDIE /[id number]
--- NOTE | 2019-02-07 11:48 | Operative Report ---
DATE OF PROCEDURE: 12/31/2018 SURGEON: Guillermo Coe MD PREOPERATIVE DIAGNOSES: 1. Stress type urinary incontinence. 2. Grade 4 cystocele. 3. Urinary tract infections. POSTOPERATIVE DIAGNOSES: 1. Stress type urinary incontinence. 2. Grade 4 cystocele. 3. Urinary tract infections. PROCEDURE PERFORMED: 1. repair of large cystocele (separate procedure performed for large cystocele). 2. Utilization of graft in cystocele repair. 3. Pubovaginal sling utilizing homograft (separate procedure performed for the stress incontinence). 4. Cystourethroscopy with bilateral ureteral catheterization and retrograde ureteropyelography. 5. Interpretation of retrograde ureteropyelography. GREIGE GOODS INSPECTOR: Nazia Coe MD ANESTHESIA: General. COMPLICATIONS: None. CLINICAL SUMMARY: Ms. Braun is a 68-year-old woman with severe grade 4 cystocele. She also stress incontinence and recurrent urinary tract infections. She is brought for the above procedures. She and the family are aware of the risks of bleeding, infection, injury to adjacent structures, persistent incontinence, de jazmín urge incontinence, failure of the procedure, need for additional procedure such as a sacral colpopexy and the usual attendant risks of surgery and anesthesia, which they were encouraged to discuss with anesthesiologist preoperatively. She understood these risks and elected to proceed. OPERATIVE PROCEDURE IN DETAIL: Informed consent was verified. Kemi Braun was properly identified, taken to the operating room, placed on the operating table in supine position. Anesthesia was uneventfully begun. The patient was then carefully gently repositioned in dorsal lithotomy position with all pressure points carefully well padded. Her abdomen, genitalia and perineum were shaved, prepared, and draped in usual sterile fashion. Labial stay sutures were utilized. Vaginal speculum as well. Marcaine with epinephrine was utilized to infiltrate submucosally in the midline of the anterior vaginal wall. A midline incision was then made. Bilateral vaginal wall flaps were created. We continued dissection laterally and pierced the endopelvic fascia bilaterally taking care to stay as laterally as possible to the urethra to avoid any injury to the periurethral neurovascular complexes. Once we entered the space of Retzius bilaterally and were able to palpate the posterior surface of the pubis on left side. We then proceeded with performing a cystocele repair. This patient's cystocele is grade 4 cystocele was very severe. We utilized heavy Vicryl suture in interrupted fashion from the bladder neck region to the cephalad most extent of the vaginal dissection. Plication was performed by reapproximating the two cut edges of the pelvic fascia. This resulted in complete reduction of the patient's severe cystocele. Butler catheter was placed. The bladder was drained. Graft of the fascia ila was soaked in antibiotic irrigant. It was cut to shape. A heavy PDS suture was then placed in a helical fashion through each ends of the graft. We then utilized the [employer] needle system. The maneuver was performed first on left-hand side, then on right-hand side. We utilized the needle with a finger in the vaginal incision to direct the needle to the posterior surface of the pubis. We then pierced through the anterior abdominal wall, contracted needle through the anterior abdominal wall, thus tracking through the channel once PDS suture strands and performing that maneuver bilaterally. We then utilized 3-0 chromic suture to secure the graft to the cephalad most extent of the vaginal dissection to prevent folding and migration. We then brought the graft distally to the distal urethra and secured in position with 3-0 chromic suture, thus we utilized the graft also as a pubovaginal sling. We removed flap from the PDS sutures and then utilized the [employer] lateral suture passer to take one strand of each PDS suture and tunnel it subcutaneously suprapubically to join its contralateral counterpart. The PDS suture pairs were then tied to the level of the patient's skin and the knot was then allowed to fall deep within the suprapubic fat pad. This maneuver was done to ensure a non-lifting, non-constricting, nonobstructing sling is placed. Copious irrigation was performed. We verified hemostasis. The patient's vaginal wall was then minimally trimmed and the patient's vaginal incision was approximated with heavy Vicryl suture in running fashion. Two stab wounds in the suprapubic area were approximated with 4-0 Monocryl suture in subcuticular fashion. The cystoscope sheath with the visual obturator was inserted under direct vision. Panendoscopy of the bladder revealed no suspicious mucosal lesions. No tumors, no stones, no diverticula. There were no suspicious lesions and no suture material. No evidence of bladder injury. Ureteral catheter was used to cannulate each ureter and retrograde ureteropyelography was performed. Interpretation of retrograde ureteropyelography contrast was instilled in retrograde fashion bilaterally. Unobstructed drainage was observed bilaterally fluoroscopically. There was J hooking noted bilaterally as a result of replacing the bladder back to its normal anatomical position following the status of severe prolapse. The cystoscope was withdrawn. Butler catheter was placed. Vaginal packing with antibiotic ointment was placed. The previous stay sutures were removed. Sterile dressings were applied to the suprapubic stab wounds. The patient was then uneventfully reversed from anesthesia and taken to recovery room in stable condition. There were no complications to the procedure. The patient tolerated the procedure well. Sponge, needle, and instrument counts were of course correct x2 at the end of the case. We will proceed with routine postoperative care and ongoing urological followup. Guillermo Coe MD [place]/SANDIE /[id number] cc: Demetria Graves DO
== END 2019-01-01 15:54 | disposition home or self-care (01) | DRG 748 ==
LOC: OR 06:56 → PACU V 12:14 → MED/SURG 13:32
PROVIDERS: ADMIT Internal Medicine; ATTEND Internal Medicine
PROC: 0TJB8ZZ Inspection of Bladder, Via Natural or Artificial Opening Endoscopic (ICD-10-PCS; 2018-12-31)
PROC: BT141ZZ Fluoroscopy of Kidneys, Ureters and Bladder using Low Osmolar Contrast (ICD-10-PCS; 2018-12-31)
PROC: 0JQC0ZZ Repair Pelvic Region Subcutaneous Tissue and Fascia, Open Approach (ICD-10-PCS; principal; 2018-12-31 09:00)
PROC: 0TSD0ZZ Reposition Urethra, Open Approach (ICD-10-PCS; 2018-12-31 09:00)
DX: N39.3 Stress incontinence (female) (male) (principal); N39.0 Urinary tract infection, site not specified; N39.41 Urge incontinence; N32.81 Overactive bladder; I10 Essential (primary) hypertension; Z83.3 Family history of diabetes mellitus; Z82.49 Family history of ischemic heart disease and other diseases of the circulatory system; N81.10 Cystocele, unspecified; N95.2 Postmenopausal atrophic vaginitis; R39.12 Poor urinary stream; R35.1 Nocturia; N81.89 Other female genital prolapse; R39.14 Feeling of incomplete bladder emptying; N81.6 Rectocele; N36.41 Hypermobility of urethra
CPT/HCPCS: 36415; 71046; 74420; 80048; 85025; 93005; J0696; J1100; J1580; J2001; J2250; J2270; J2405; J2543; J3010